=== PATIENT | female | born 1960 | race Caucasian/White ===

== ENCOUNTER → 2017-09-19 11:41 | Outpatient (CLI) | payer OTHER, SELFPAY ==
--- NOTE | 2017-09-19 | EMB_PTH ---
PATIENT: ALEX CAMPBELL LOC: [facility] U#:[id number] AGE/SX: 64/F ROOM: RE09/19/[address]: Dr. Kishore Villanueva MD : 1960 BED: DIS: SPEC #: [id number] RECD: 09/19/17 13:28 STATUS: DALE PAZ #: [id number] JEFF: 09/19/17 00:[address]: Kishore Villanueva DEPT: SURGICAL PATHOLOGY RECD BY: Ben Ac Tissues: Endometrium, NOS Procedures: Surgery Specimen Level IV HEADER OPERATION: EMB PRE-OP DIAGNOSIS: Postmenopausal bleeding TISSUE SUBMITTED: Endometrium MICROSCOPIC DIAGNOSIS Endometrial biopsy: Fragments of weakly proliferative endometrium. ENOC:michael 09/22/17 MICROSCOPIC DESCRIPTION Slides are reviewed. GROSS DESCRIPTION Received in fixative is one container labeled with the patient's name and designated EMB. The specimen consists of multiple irregular fragments of hemorrhagic soft tissue that in aggregate measure 2.5 x 1.5 x 0.1 cm. The specimen is totally submitted in one cassette. ENOC:michael 09/19/17 TC:5 CPT:17246
[2017-09-26 12:27] LABS: HPV Reflexed? NOT INDICATED
== END ==
PROVIDERS: Visit Provider Obstetrics & Gynecology
DX: Z12.4 Encounter for screening for malignant neoplasm of cervix (principal); N95.0 Postmenopausal bleeding
CPT/HCPCS: 88175; 88305; G0145

== ENCOUNTER → 2017-10-08 14:48 | Outpatient (CLI) | payer OTHER, SELFPAY ==
[2017-10-09 09:39] LABS: Cancer Antigen 125 26.7 U/mL (0.0-38.1)
== END ==
PROVIDERS: Visit Provider Obstetrics & Gynecology
DX: R19.09 Other intra-abdominal and pelvic swelling, mass and lump (principal)
CPT/HCPCS: 36415; 86304

== ENCOUNTER 2017-12-23 10:47 | Emergency (ER) | payer OTHER, SELFPAY ==
[2017-12-23 10:48] VITALS: BP 162/100; PULSE 74; RESP 18; TEMP 36.6; O2SAT 98; BMI 31.6
[2017-12-23 11:19] VITALS: BP 141/101; PULSE 66; RESP 20; O2SAT 95
[2017-12-23] MEDS: Ondansetron ODT 4 MG Tablet PO (11:44)
[2017-12-23] MEDS: diazePAM 5 MG Tablet 2.5 MG PO (11:44)
[2017-12-23 12:31] VITALS: BP 137/85; PULSE 67; RESP 19; O2SAT 92
--- NOTE | 2017-12-23 12:47 | ED.DCSUM_ITS ---
- ER Visit Summary Date of Service: 12/23/17 Chief Complaint: Dizzy History of Present Illness: The patient is a 57 F who presents with dizziness. It began about 4 hours prior to presentation. She states that she felt like the room was spinning. She then became sweaty and nauseated. She has had some rec ent congestion and also recently flew back from [place]. No vomiting. No headache. No head injury. No slurred speech weakness or confusion. Physical Examination: Initial blood pressure 162/100 vitals otherwise normal Patient does have nystagmus with fast beats to the right Patient has no focal or lateralizing neurological deficit she has normal strength and sensation she has no ataxia she does have clear speech Heart regular rate and rhythm Lungs clear Abdomen soft Test Results: Not indicated Emergency Department Course and Treatment: History and examination are consistent with peripheral vertigo. She was treated with Zofran for nausea and then given oral Valium. She reports significant improvement of her symptoms. They have not however completely resolved. She was able to ambulate without assistance. She was given a prescription for a few doses of Valium at home. She was also instructed on supportive care. She understands return for new or worsening symptoms and was discharged home. Treatment Plan: [] Disposition: Discharge Impression: Peripheral vertigo This note was generated with [employer] dictation software. It may contain incorrect words, spelling, and punctuation that were not noted in review of the chart pr ior to signing ED Disposition - Plan for ED Patient: Chief Complaint: Dizziness Referrals: Eric Laura DO [Primary Care Provider] -
--- NOTE | 2017-12-23 12:47 | ED.DEP ---
ED Disposition - Plan for ED Patient: Chief Complaint: Dizziness Instructions: ED Vertigo Unspecified Prescriptions: Diazepam [Valium] 2 mg PO TID PRN PRN #5 tab PRN Reason: Vertigo Referrals: Eric Laura DO [Primary Care Provider] -
== END 2017-12-23 13:00 | disposition home or self-care (01) ==
PROVIDERS: Emergency Provider Emergency Medicine; Family Provider Student in an Organized Health Care Education/Training Program; PCP Student in an Organized Health Care Education/Training Program
DX: H81.399 Other peripheral vertigo, unspecified ear (principal); E03.9 Hypothyroidism, unspecified
CPT/HCPCS: 99281; A4216

== ENCOUNTER 2018-01-05 07:13 | Day surgery (SDC) | payer OTHER, SELFPAY ==
[2017-12-25 17:17] LABS: Hematocrit 41.3 % (37-47); Hemoglobin 14.1 g/dl (12.0-15.0); Mean Corp Hgb Conc 34.1 g/gl (32-36); Mean Corpuscular Hgb 31.5 pg (27.0-32.0); Mean Corpuscular Volume 92.4 fL (81-99); Mean Platelet Vol. 11.3 fl (6.2-12.0); Platelet Count 217 K/mm3 (150-450); RBC Distribution Width CV 12.4 % (11.6-14.6); Red Blood Count 4.47 M/mm3 (4.2-5.4); White Blood Count 6.5 K/mm3 (4.4-11.0)
[2017-12-25 17:20] LABS: Scan Indicated on CBC? Y/N NO
[2017-12-25 17:33] LABS: International Normalized Ratio 0.9; Prothrombin Time (Protime)PT. 12.5 SECONDS (11.7-14.9)
[2017-12-25 17:34] LABS: Partial Thromboplast Time 26.9 Seconds (24.1-36.2)
[2017-12-25 17:42] LABS: AST(SGOT) 23 U/L (15-37); Alanine Aminotransfer ALT/SGPT 35 U/L (13-56); Albumin, Serum 3.9 g/dL (3.2-5.0); Alkaline Phosphatase 116 U/L (45-117); Anion Gap 3 (5-15); BUN 13 mg/dL (7-18); BUN/Creat Ratio 16.4 RATIO (10-20); Calcium,Total 8.6 mg/dL (8.5-10.1); Chloride 108 mmol/L (98-107); Creatinine, Serum 0.79 mg/dL (0.55-1.02); EST Glomerular Filtration Rate 80 mL/min (>60); Est Glom Filt Rate - Afr Amer 97 mL/min (>60); Glucose 96 mg/dL (74-106); Protein, Total 7.9 g/dL (6.4-8.2); Sodium Level 142 mmol/L (136-145)
--- NOTE | 2017-12-31 08:37 | EKG12_ITS ---
Test Reason : PRE-OP Blood Pressure : / mmHG Vent. Rate : 074 BPM Atrial Rate : 074 BPM P-R Int : 142 ms QRS Dur : 088 ms QT Int : 376 ms P-R-T Axes : 026 005 033 degrees QTc Int : 417 ms Normal sinus rhythm Normal ECG Confirmed by ENEDELIA PINEDA, JOSE ([id number]), index editor SEPIDEH NEFF ([id number]) on 01/01/2018 9:50:44 AM Referred By: Kishore Villanueva Confirmed By:JOSE MCDANIELS MD
[2017-12-31 10:02] LABS: Thyroid Stim Hormone (TSH) 3.26 uIU/mL (0.358-3.74)
--- NOTE | 2018-01-03 09:57 | PCM.HP.BLA ---
History and Physical Date of Admission: 01/05/18 Surgical History and Physical Monica Artis, a 57 year old female 3 0 1 0 3, presents for L/S RSO, Aram salpingectomy; H/S, D and C on January 05, 2018 at 10:10. -- Postmenopausal Bleeding; Solid Right Ovarian Mass -- Recent spotting. Monica claims it started suddenly and has been present 1 week. It occurs intermittantly. It is located in the vagina. Monica characterizes the quality spotting. Severity is moderate and very concerned. U/S normal except for small solid mass in the right ovary. Additional comments are: CA-125 about 28. MEDICATIONS HISTORY: Patient is also takin. levothyroxine 88 mcg tablet, daily ALLERGIES: NKA Infections - Chicken pox Illnesses - Thyroid Accidents - no injuries of consequence Hospitalizations - Childbirth and see surgery Review of Systems: GENERAL - Denies fever, or chills SKIN - Denies skin changes EYES - Denies visual changes EARS - Denies difficulty hearing NOSE - Denies nasal congestion or bleeding MOUTH - Denies sore throat or difficulty swallowing NECK - Denies pain or swelling RESPIRATORY - Denies shortness of breath or wheezing CARDIOVASCULAR - Denies palpitations or chest pain GASTROINTESTINAL - Denies nausea, vomiting, diarrhea, constipation GENITOURINARY - Denies dysuria, frequency of urination, incontinence of urine MUSCULOSKELETAL - Denies joint or muscle pain NEUROLOGICAL - vertigo PSYCHIATRIC - Denies depression or anxiety ENDOCRINE - Denies heat or cold intolerance, weight loss or gain HEMATO-IMMUNOLOGIC - Denies excesive bleeding with cuts SOCIAL HISTORY: Alcohol Use - occasionally Smoking - denies smoking Diet - no particular diet Lifestyle - moderate stress lifestyle and Seat Belt Use - always Employer - [employer] Illicit Drug Use - denies use of street drugs Sexual Activity - single sexual partner and Spouse-Sig Other Name - Nikos Bynum- Spouse-Sig 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 Father: Heart Disease. MENSTRUAL HISTORY: LMP Known?- PostmenopausalAmount/Duration - 3 days, LMP - 12/07/17, Age Onset Menarche - 14 PAST PREGNANCIES: Total Pregnancies - 4; Full Term Pregnancies - 3; Premature - 0; Abortions, Induced - 0; Abortions, Spontaneous - 1; Ectopics - 0; Multiple Births - 0; Living Children - 3 SURGICAL HISTORY: 1. x3 2. 1982 tonsillectomy 3. 01/21/2001 BPS ; Kishore Villanueva M.D. 4. Gallbladder removal 2016 PHYSICAL EXAM BP- 138/72 Sitting, Right arm, regular cuff Weight- 196.40795 lbs Height- 64 inch BMI:33.71 CONSTITUTIONAL - NAD, well nourished, and well developed SKIN - No rash, lesions, or ulcers HEENT - Normocephalic, PERRLA, EOMI NECK - no nodes, no nuchal rigidity and thyroid normal size and texture LYMPH NODES - Palpation of lymph nodes in neck and groins within normal limits LUNGS - CTA x2 without wheezes, crackles or rales CARDIAC - Regular rate and rhythm without rubs, murmurs, or gallops ABDOMEN - Without hepatosplenomegaly, distention, masses, rebound, or guarding; normal bowel sounds, no hernias and surgical scar EXTREMITIES - No edema or calf tenderness NEUROLOGICAL - Cranial nerves II-XII grossly intact PSYCHIATRIC - A and O to time, place, person, mood and affect External Genitial Vagina - non-tender without lesions Urethra/Urethral Meatus - non-tender Bladder - non-tender Vagina - vaginal hernandez are pink and moist without loss of rugae and no evidence of atropy Cervix - without cervical motion tenderness and has normal size and features without evident lesions Uterus - multiparous size 6 cm & wt 75-125 g Adnexa - clear without massess or tenderness ASSESSMENT/PLAN: 1. Ovarian Cyst Nos and Postmenopausal Bleeding Discussed proceeding with a L/S RSO, Left Salpingectomy and D and C with hysteroscopy or RAVH/BSO. Wants to proceed with the laparoscopy. Discussed RBAs and all questions answered.
[2018-01-05 07:35] VITALS: BP 133/71; PULSE 67; RESP 16; TEMP 36.6; O2SAT 96; BMI 32.8
--- NOTE | 2018-01-05 08:31 | PCM.OP.BLANK ---
Operative Report Date of Procedure: 01/05/18 Surgeon: Kishore Villanueva MD, FACOG Storekeeper Helper: DONNA Back Anesthesia: Wesly Gomez MD Type of Anesthesia: General Endotracheal Pre-Op Diagnosis: Solid Right Ovarian Tumor, Postmenopausal Bleeding Postoperative diagnosis: Solid Right Ovarian Tumor, Postmenopausal Bleeding Procedure: Diagnostic Hysteroscopy, Fractional Dilation and Curettage, Laparoscopic Right Salpingo-Oophorectomy, Left Salpingectomy Findings: 8 cm uterus with normal appearing fallopian tubes and ovaries except for a 2 cm dark appearing cyst on the right ovary. 8 cm endometrial cavity with no polyps or fibroids visualized. Atrophic endometrium. Evidence of prior tubal ligation. Robotic assisted vaginal hysterectomy would be technically feasible. Indications: This is a 57 year old patient who has the above diagnosis. The patient has been counseled regarding the risk and indications of this procedure including the possibility of bleeding, infection, and injury to surrounding structures such as bowel and bladder. All questions were answered and we consider the patient well-informed. Procedure: The patient was taken to the operating room where after induction of general anesthesia, she was placed in the dorsolithotomy position and prepped and draped in the usual sterile fashion. The bladder was drained of approximately 50 cc of clear yellow urine with a catheter. Anterior cervix was grasped with a tenaculum and dilated to about 4-5 mm. Endocervical curettings were obtained. A 3 mm hysteroscope was placed in the uterus and the above findings were noted. Cervix was dilated to about 6 mm and uterus was gently curetted removing all contents. In the course of the procedure approximately 100 cc of saline distending media was used and virtually all of this was recovered. Conn cannula was placed and attention was turned toward the laparoscopic portion of the procedure. Approximately 20 cc of half percent ropivacaine was injected subumbilically suprapubically and midway between. A 5 mm bladeless trocar was placed subumbilically and intraperitoneal placement confirmed. After CO2 insufflation was complete, a 10/12 mm bladed trocar was introduced suprapubically under direct visualization. The above findings were noted. A 5 mm blade less port was then placed midway between these 2 ports for manipulation. Each fallopian tube was identified to its fimbriated end and an Enseal device was used to divide the mesosalpinx on the left and infundibulopelvic ligament on the right. Specimens were removed through the lower port with the ovary removed with an Endobag. The peritoneal cavity and upper abdomen were examined and noted to be normal. Photographs were taken. Laparoscopic instruments with as much CO2 gas as possible were removed and fascia on the the lower incision was closed with a single [id number] 0 Vicryl suture. Skin incisions were closed with interrupted and running 4-0 Monocryl suture. Steri-Strips placed were across the incisions. Vaginal instruments were removed. Patient tolerated procedure well was taken to recovery room in satisfactory condition sponge instrument and needle counts were all reportedly correct. Estimated blood loss for the case was minimal. Specimens to pathology was endometrial and endocervical curettings, left fallopian tube, right fallopian tube and ovary.
--- NOTE | 2018-01-05 08:38 | OP.PCM_ITS ---
Operative Report Date of Procedure: 01/05/18 Surgeon: Kishore Villanueva MD, FACOG Shirt Folding Machine Operator: DONNA Back Anesthesia: Wesly Gomez MD Type of Anesthesia: General Endotracheal Pre-Op Diagnosis: Solid Right Ovarian Tumor, Postmenopausal Bleeding Postoperative diagnosis: Solid Right Ovarian Tumor, Postmenopausal Bleeding Procedure: Diagnostic Hysteroscopy, Fractional Dilation and Curettage, Laparoscopic Right Salpingo-Oophorectomy, Left Salpingectomy Findings: 8 cm uterus with normal appearing fallopian tubes and ovaries except for a 2 cm dark appearing cyst on the right ovary. 8 cm endometrial cavity with no polyps or fibroids visualized. Atrophic endometrium. Evidence of prior tubal ligation. Robotic assisted vaginal hysterectomy would be technically feasible. Indications: This is a 57 year old patient who has the above diagnosis. The patient has been counseled regarding the risk and indications of this procedure including the possibility of bleeding, infection, and injury to surrounding structures such as bowel and bladder. All questions were answered and we consider the patient well-informed. Procedure: The patient was taken to the operating room where after induction of general anesthesia, she was placed in the dorsolithotomy position and prepped and draped in the usual sterile fashion. The bladder was drained of approximately 50 cc of clear yellow urine with a catheter. Anterior cervix was grasped with a tenaculum and dilated to about 4-5 mm. Endocervical curettings were obtained. A 3 mm hysteroscope was placed in the uterus and the above findings were noted. Cervix was dilated to about 6 mm and uterus was gently curetted removing all contents. In the course of the procedure approximately 100 cc of saline distending media was used and virtually all of this was recovered. Conn cannula was placed and attention was turned toward the laparoscopic portion of the procedure. Approximately 20 cc of half percent ropivacaine was injected subumbilically suprapubically and midway between. A 5 mm bladeless trocar was placed subumbilically and intraperitoneal placement confirmed. After CO2 insufflation was complete, a 10/12 mm bladed trocar was introduced suprapubically under direct visualization. The above findings were noted. A 5 mm blade less port was then placed midway between these 2 ports for manipulation. Each fallopian tube was identified to its fimbriated end and an Enseal device was used to divide the mesosalpinx on the left and infundibulopelvic ligament on the right. Specimens were removed through the lower port with the ovary removed with an Endobag. The peritoneal cavity and upper abdomen were examined and noted to be normal. Photographs were taken. Laparoscopic instruments with as much CO2 gas as possible were removed and fascia on the the lower incision was closed with a single [id number] 0 Vicryl suture. Skin incisions were closed with int errupted and running 4-0 Monocryl suture. Steri-Strips placed were across the incisions. Vaginal instruments were removed. Patient tolerated procedure well was taken to recovery room in satisfactory condition sponge instrument and needle counts were all reportedly correct. Estimated blood loss for the case was minimal. Specimens to pathology was endometrial and endocervical curettings, left fallopian tube, right fallopian tube and ovary.
--- NOTE | 2018-01-05 08:39 | DCINST_ITS ---
Discharge Diet: No Restrictions - Increase fluid intake for the next 48 hours. Discharge Activity: Return to Normal Activity, May Drive, May Shower, May Take a Tub Bath May resume sexual activity in: 2 weeks Additional Activity Instructions:: Ambulate often the next week after surgery. Nothing in the vagina for 5 days. Call your doctor if your incision/area has: Continuous Slow Oozing, Sudden Increased Bleeding, Increased Pain/ Swelling, Increased Redness, Foul Smelling Discharge Call your doctor if you observe: Fever of 101 or Higher, Inability to urinate, Inability to have a bowel movement, Using more than one pad per hour Allergies/Adverse Reactions: Allergies No Known Allergies Allergy (Verified 12/29/17 09:27) Medications to take at Discharge Levothyroxine [Synthroid] 88 mcg PO DAILY 12/23/17 Multivitamin [Multiple Vitamins] 1 each PO DAILY 12/29/17 Hydrocodone/Acetaminophen [[place] 5-325 Tablet] 1 ea PO Q6H PRN PRN 7 Days #10 tab 01/05/18 Omeprazole Magnesium [Prilosec Otc] 20 mg PO DAILY PRN PRN 01/05/18 The following prescriptions were given: Hydrocodone/Acetaminophen [[place] 5-325 Tablet] 1 ea PO Q6H PRN PRN 7 Days #10 tab PRN Reason: Severe Pain (6-12/31) Primary Care Physician: Eric Laura DO [Primary Care Provider] - Test Results: Test results from this visit will be discussed in further detail at your follow- up appointment, if applicable. Please Follow Up With: Kishore Villanueva MD - [phone] When: 2-3 weeks
--- NOTE | 2018-01-05 08:40 | EMB_PTH ---
PATIENT: ALEX CAMPBELL LOC: [facility] – [place] U#:[id number] AGE/SX: 57/F ROOM: RE01/05/[address]: Dr. Kishore Villanueva MD : 1960 BED: DIS: 01/05/2018 SPEC #: [id number] RECD: 01/05/18 09:34 STATUS: DALE PAZ #: [id number] JEFF: 01/05/18 08:[address]: Kishore Villanueva DEPT: SURGICAL PATHOLOGY RECD BY: Dre Reid ENTERED: 01/05/18 10:18 SP TYPE: ENDOM BX/C OT DR: Dr. Eric Laura, Tissues: A - Endometrium, NOS B - Fallopian tube C - Ovary, NOS D - Endocervical Procedures: Surgery Specimen Level IV HEADER OPERATION: Laparoscopic salpingectomy left/RSO; hysteroscopy D & C PRE-OP DIAGNOSIS: Postmenopausal bleeding, right ovarian cyst TISSUE SUBMITTED: A - Endometrial curettings, B - Left fallopian tube, C - Right ovary and fallopian tube, D - Endocervical curettings MICROSCOPIC DIAGNOSIS A. Endometrium, curettings: Polypoid fragment of endometrium with cystic atrophic change. B. Left fallopian tube, salpingectomy: Complete segment of fallopian tube with benign paratubal cyst. C. Right ovary and fallopian tube, salpingo-oophorectomy: Ovary with benign epithelial cyst with associated hemorrhage and corpora albicantia. Complete segment of fallopian tube with no pathologic change. D. Endocervix, curettings: Strips of benign superficial squamous epithelium. Rare strips of benign superficial endocervix. See comment. AM:bharath 01/06/18 COMMENT D. The specimen primarily consists of mucoid material. Clinical correlation is suggested. Case has been reviewed in consultation with Dr. Siddiqui who concurs with the above diagnosis. IDC:SJ MICROSCOPIC DESCRIPTION Slides are reviewed. GROSS DESCRIPTION A - Received in fixative is one container labeled with the patient's name and designated endometrial curettings. The specimen consists of multiple irregular fragments of pink-red soft tissue that in aggregate measure 2.5 x 1.5 x 0.1 cm. The specimen is totally submitted in one cassette. B - Received in fixative is one container labeled with the patient's name and designated left fallopian tube. The specimen consists of a fallopian tube measuring 3.5 cm in length and up to 0.6 cm in diameter. The fimbrial end is identified. Also present in the container is a detached piece of hoang soft tissue measuring 0.6 x 0.5 x 0.3 cm. Sections reveal unremarkable cut surfaces. A paratubal cyst is noted measuring 0.5 cm in greatest dimension. Executive Relations Specialist sections are submitted in one cassette. C - Received in fixative is one container labeled with the patient's name and designated right ovary and fallopian tube. The specimen consists of a fallopian tube and ovary. The fallopian tube measures 5 cm in length and up to 0.5 cm in diameter. The fimbrial end is identified. Sections reveal unremarkable cut surfaces. The ovary measures 2.5 x 1.5 x 1 cm. Sections reveal a hemorrhagic cyst measuring 1 cm in greatest dimension. The entire specimen is submitted in three cassettes as follows: 1 - fallopian tube, 2 & 3 - entire ovary. D - Received in fixative is one container labeled with the patient's name and designated endocervical curettings. The specimen consists of multiple irregular fragments of pink-red mucoid tissue that in aggregate measure 1 x 1 x 0.1 cm. The specimen is totally submitted in one cassette. / SJ:rg 01/05/18 TC:5 CPT: 03150 x4
[2018-01-05] MEDS: Ropivacaine 0.5% 30 ML Vial (08:50)
[2018-01-05 09:54] VITALS: BP 118/72; BP 133/71; PULSE 80; RESP 16; TEMP 36.2; O2SAT 92
[2018-01-05 10:00] VITALS: BP 120/69; BP 133/71; PULSE 75; RESP 16; O2SAT 96
[2018-01-05 10:15] VITALS: BP 117/75; BP 133/71; PULSE 68; RESP 16; O2SAT 92
[2018-01-05 10:25] VITALS: BP 114/72; BP 133/71; PULSE 65; RESP 16; TEMP 36.2; O2SAT 100
[2018-01-05 12:03] VITALS: BP 133/71; BP 147/83; PULSE 62; RESP 16; TEMP 36.5; O2SAT 95
== END 2018-01-05 12:06 | disposition home or self-care (01) ==
LOC: SDC 07:14 → AC 07:15
PROVIDERS: Family Provider Student in an Organized Health Care Education/Training Program; PCP Student in an Organized Health Care Education/Training Program; Referring Provider Obstetrics & Gynecology; Visit Provider Obstetrics & Gynecology
PROC: (CPT 58661; principal; 2018-01-05 08:25)
DX: N83.291 Other ovarian cyst, right side (principal); N85.8 Other specified noninflammatory disorders of uterus; N83.8 Other noninflammatory disorders of ovary, fallopian tube and broad ligament; N95.0 Postmenopausal bleeding; K21.9 Gastro-esophageal reflux disease without esophagitis; E06.9 Thyroiditis, unspecified
CPT/HCPCS: 58558; 58661; 36415; 80053; 84443; 85027; 85610; 85730; 86850; 86900; 88302; 88305; 93005; J7120; C1760; J2405

== ENCOUNTER → 2018-11-13 14:42 | Outpatient (CLI) | payer SELFPAY ==
--- NOTE | 2018-11-13 14:51 | CT_ITS ---
STUDY: CARDIAC CALCIUM SCORING - CT CHEST REASON FOR EXAM: Female, 57 years old. Hypercholesterolemia. Screening. RADIATION DOSAGE (If Supplied By Facility): CTDIvol = ( 12.19 ) mGy, DLP = ( 170.66 ) mGycm TECHNIQUE: Axial non-enhanced images were acquired through the heart for the sole purpose of measuring coronary artery calcium. Individualized dose optimization techniques were used for this CT. COMPARISON: None. FINDINGS: Please see patient's medical record for a personalized calcium score. The visualized lungs are clear. The visualized soft tissues are within normal limits. CT/Limited Chest CT w/CCTA IMPRESSION: Please see the patient's medical record for a personalized calcium score. Please go to: [email or web address] , for a description of the calculator. Electronically Signed: Boris Ya, at 15:57 EDT Tel , Service support ,
[2018-11-13 15:07] VITALS: BP 113/71; PULSE 58; RESP 16; O2SAT 97; BMI 31.7
--- NOTE | 2018-11-17 10:33 | CA.SCORE ---
Calcium Scoring Date of Study:: 11/13/18 Coronary Calcium Scoring: High-resolution Computed Tomographic imaging of the chest was performed on [11/13/2018], with particular attention paid to the coronary arteries. Images from the examination were analyzed for the presence and extent of coronary artery calcification , using coronary calcium quantification software. The patient tolerated the procedure well and there were no complications. The results of the coronary calcification analysis are provided below. - Findings Left Main (LM): 0 Left Anterior Descending (LAD): 0 Left Circumflex (LCX): 0 Right Coronary Artery (RCA): 0 Total Agatston Score: 0 Percentile Rankin Calcium Scoring Interpretation: 0 No identifiable atherosclerotic plaque. Very low cardiovascular disease risk. <5% chance of presence coronary artery disease A Negative Examination 1-10 Minimal Plaque burden. Significant coronary artery disease very unlikely. 11-100 Mild plaque burden. Likely mild or minimal coronary atherosclerosis. 101-400 Moderate plaque burden Moderate non-obstructive coronary artery disease highly likely. Over 400 Extensive plaque burden. High likelihood of at least one significant coronary stenosis (>50% diameter) The total calcium score (0) below the 25th percentile for women between the ages of 55 and 59. Her entheses exact percentile calculated to be 25%; this means 24% of the population is a similar calcium score and 75% of the population has a higher calcium score than this patient.) Full evaluation of cardiac risk including assessment of all conventional risk factors, and the scores and percentile rankings reported herein should be evaluated in this context.
== END ==
PROVIDERS: Family Provider Internal Medicine; PCP Internal Medicine; Referring Provider Internal Medicine; Visit Provider Internal Medicine
DX: E78.5 Hyperlipidemia, unspecified (principal)
CPT/HCPCS: 75571; 76380

== ENCOUNTER → 2020-03-22 | Outpatient (CLI) | payer OTHER, SELFPAY ==
[2018-11-13 15:07] VITALS: BMI 31.7
[2020-03-28 13:43] LABS: HPV Reflexed? NOT INDICATED
== END | disposition home or self-care (01) ==
LOC: LABSPEC 13:14
PROVIDERS: PCP Internal Medicine; Visit Provider Obstetrics & Gynecology
DX: Z12.4 Encounter for screening for malignant neoplasm of cervix (principal)
CPT/HCPCS: 88175; G0145

== ENCOUNTER → 2020-03-28 08:41 | Outpatient (CLI) | payer OTHER, SELFPAY ==
[2018-11-13 15:07] VITALS: BMI 31.7
--- NOTE | 2020-03-28 08:43 | BI_ITS ---
MAMMOGRAPHY - BILATERAL SCREENING REASON FOR EXAM: Female, 59 years old. Routine annual screening examination. PERTINENT HISTORY: Non-contributory. TECHNIQUE: Digital bilateral breast vitor (3D mammographic acquisition) in the CC and MLO projections. 2-D mediolateral oblique (MLO) and craniocaudad (CC) views of both breasts were obtained. CAD: Full Field Digital Mammography with Computer Added Detection was performed. COMPARISON: Comparison is made with prior outside examination dated 03/06/2017. FINDINGS: Breast Composition: There are scattered areas of fibroglandular density. There are no dominant masses or suspicious calcifications. No other significant abnormalities are identified. There has been no significant change since the prior study. BI/SCREEN MAMM (CAD) W/VITOR BILAT IMPRESSION: Stable bilateral screening mammogram. Yearly follow-up mammogram recommended. (A) ASSESSMENT CATEGORY: BIRADS Category 1: Negative. A letter regarding these results will be sent to the patient by the facility within 30 days. Approximately 10% of breast cancers are not detected by mammography. A normal mammogram should not delay biopsy of a clinically suspicious abnormality. [id number] Electronically Signed: Tristan Moser, at 11:57 EST , Service support ,
== END ==
PROVIDERS: PCP Internal Medicine; Referring Provider Internal Medicine; Visit Provider Internal Medicine
DX: Z12.31 Encounter for screening mammogram for malignant neoplasm of breast (principal)
CPT/HCPCS: 77063; 77067

== ENCOUNTER → 2022-03-19 | Outpatient (CLI) | payer OTHER, SELFPAY ==
--- NOTE | 2022-03-19 16:00 | BI_ITS ---
MAMMOGRAPHY - BILATERAL SCREENING REASON FOR EXAM: Female, 61 years old. Routine annual screening examination. PERTINENT HISTORY: Non-contributory. TECHNIQUE: Digital bilateral breast vitor (3D mammographic acquisition) in the CC and MLO projections. 2-D mediolateral oblique (MLO) and craniocaudad (CC) views of both breasts were obtained. CAD: Full Field Digital Mammography with Computer Added Detection was performed. COMPARISON: 03/28/2020 FINDINGS: Breast Composition: There are scattered areas of fibroglandular density. There are no dominant masses or suspicious calcifications. No other significant abnormalities are identified. There has been no significant change since the prior study. BI/SCRN MAMM (CAD)W/VITOR BILAT IMPRESSION: Stable bilateral screening mammogram. Yearly follow-up mammogram recommended. (A) ASSESSMENT CATEGORY: BIRADS Category 1: Negative. A letter regarding these results will be sent to the patient by the facility within 30 days. Approximately 10% of breast cancers are not detected by mammography. A normal mammogram should not delay biopsy of a clinically suspicious abnormality. Electronically Signed: Ramirez Whipple, at 16:09 EST ,
--- NOTE | 2022-03-19 16:03 | BD_ITS ---
STUDY: DUAL ENERGY X-RAY ABSORPTIOMETRY / DXA REASON FOR EXAM: Female, 61 years old. [id number] TECHNIQUE: Bone Mineral Density (BMD) measurements of lumbar spine and bilateral hips were obtained. COMPARISON: None. FINDINGS: Lumbar Spine (L1-L4): g/cm2 (0.923) / T-score (-1.1) / Z-score (0.2) Findings are suggestive of osteopenia with a low fracture risk. Left Femur Total: g/cm2 (0.984) / T-score (0.3) / Z-score (1.2) Left Femoral Neck: g/cm2 (0.777) / T-score (-0.6) / Z-score (0.6) Right Femur Total: g/cm2 (0.986) / T-score (0.4) / Z-score (1.3) Right Femoral Neck: g/cm2 (0.824) / T-score (-0.2) / Z-score (1.0) BD/Dexa Bone Density Study IMPRESSION: The patient is considered osteopenic as outlined below according to World Quint[employer] Organization (WHO) criteria with a low fracture risk. Reference Information: The T-score is the number of standard deviations above or below the standard which is normal for young adults at their peak bone mineral density. The World Health Organization (WHO) interprets the T-scores as follows: Above -1 Normal bone density Between -1 and -2.5 Osteopenia Equal to / or below -2.5 Osteoporosis As a practical clinical guideline, osteopenia may be graded as follows: Mild -1 through -1.5 Moderate -1.6 through -2.0 Severe -2.1 through -2.4 The Z-score is the number of standard deviations above or below age-matched controls. A Z-score of less than -1.5 would be considered abnormal. References: 1. NIH Osteoporosis and Related Bone Diseases www osteo.org 2. International Society for Clinical Densitometry www iscd.org 3. National Osteoporosis Foundation www nof.org Electronically Signed: Tristan Moser MD at 12:15 EST ,
== END | disposition home or self-care (01) ==
LOC: OPBD 15:56
PROVIDERS: PCP Internal Medicine; Visit Provider Internal Medicine
DX: Z12.31 Encounter for screening mammogram for malignant neoplasm of breast (principal); Z78.0 Asymptomatic menopausal state
CPT/HCPCS: 77063; 77067; 77080

== ENCOUNTER → 2024-04-06 | Outpatient (CLI) | payer OTHER, SELFPAY ==
--- NOTE | 2024-04-06 09:30 | BI_ITS ---
MAMMOGRAPHY - BILATERAL SCREENING REASON FOR EXAM: Female, 63 years old. Routine annual screening examination. PERTINENT HISTORY: Non-contributory. TECHNIQUE: Digital bilateral breast vitor (3D mammographic acquisition) in the CC and MLO projections. 2-D mediolateral oblique (MLO) and craniocaudad (CC) views of both breasts were obtained. CAD: Full Field Digital Mammography with Computer Added Detection was performed. COMPARISON: Comparison is made with prior study dated March 19, 2022 and March 28, 2020.. FINDINGS: Breast Composition: There are scattered areas of fibroglandular density. There are no dominant masses or suspicious calcifications. Stable small fat-containing left axillary lymph node. No other significant abnormalities are identified. There has been no significant change since the prior study. BI/SCRN MAMM (CAD)W/VITOR BILAT IMPRESSION: Stable bilateral screening mammogram. Yearly follow-up mammogram recommended. (A) ASSESSMENT CATEGORY: BIRADS Category 2: Benign. A letter regarding these results will be sent to the patient by the facility within 30 days. Approximately 10% of breast cancers are not detected by mammography. A normal mammogram should not delay biopsy of a clinically suspicious abnormality. [id number] Electronically Signed: Tristan Moser MD at 10:35 EST ,
--- NOTE | 2024-04-06 09:32 | BD_ITS ---
STUDY: DUAL ENERGY X-RAY ABSORPTIOMETRY / DXA REASON FOR EXAM: Female, 63 years old. 627.8Menopausal postmenopausal BONE DENSITY REASON FOR EXAM TECHNIQUE: Bone Mineral Density (BMD) measurements of lumbar spine and bilateral hips were obtained. COMPARISON: Comparison is made with prior study dated March 19, 2022. FINDINGS: Lumbar Spine (L1-L4): g/cm2 (0.884) / T-score (-1.5) / Z-score (0.0) Findings are suggestive of osteopenia with a low fracture risk. Left Femur Total: g/cm2 (0.939) / T-score (0.0) / Z-score (1.0) Left Femoral Neck: g/cm2 (0.756) / T-score (-0.8) / Z-score (0.5) Right Femur Total: g/cm2 (0.951) / T-score (0.0) / Z-score (1.1) Right Femoral Neck: g/cm2 (0.795) / T-score (-0.5) / Z-score (0.9) The T-Scores on the most recent prior examination were: Lumbar Spine (L1-L4): There has been worsening of bone density since the previous examination. Left Femur Total: which represents a worsening of 4.6. Right Femur Total: which represents a worsening of 3.5%. BD/Dexa Bone Density Study IMPRESSION: The patient is considered osteopenic as outlined below according to World [employer] Organization (WHO) criteria with a low fracture risk. There has been worsening of bone density since the previous examination. Reference Information: The T-score is the number of standard deviations above or below the standard which is normal for young adults at their peak bone mineral density. The World Health Organization (WHO) interprets the T-scores as follows: Above -1 Normal bone density Between -1 and -2.5 Osteopenia Equal to / or below -2.5 Osteoporosis As a practical clinical guideline, osteopenia may be graded as follows: Mild -1 through -1.5 Moderate -1.6 through -2.0 Severe -2.1 through -2.4 The Z-score is the number of standard deviations above or below age-matched controls. A Z-score of less than -1.5 would be considered abnormal. References: 1. NIH Osteoporosis and Related Bone Diseases www osteo.org 2. International Society for Clinical Densitometry www iscd.org 3. National Osteoporosis Foundation www nof.org Electronically Signed: Tristan Moser MD at 15:18 EST ,
== END | disposition home or self-care (01) ==
LOC: OPBD 09:28
PROVIDERS: PCP Internal Medicine; Referring Provider Internal Medicine; Visit Provider Internal Medicine
DX: Z13.820 Encounter for screening for osteoporosis (principal); Z78.0 Asymptomatic menopausal state; Z12.31 Encounter for screening mammogram for malignant neoplasm of breast
CPT/HCPCS: 77063; 77067; 77080